=== PATIENT | male | born 1950 | race Caucasian/White ===

== ENCOUNTER → 2018-10-19 | Outpatient (CLI) | payer OTHER ==
[~2018-10-19] VITALS: Ht 182.9 cm; Wt 89.8 kg
[~2018-10-19] MED LIST: ADULT LOW DOSE81 MG PO; AMARYL PO; AMIODARONE PO; AUGMENTIN 875875 M1; AVELOX 400 MG400 MG PO; BENICAR; BENICAR 5 MG5 M1 PO; BENICAR PO; CALCIUM CARBONATE PO; COREG PO; COREG25 MG PO; COUMADIN 2 MG TA2 M1 PO; COUMADIN 4 MG TA4 M1 PO; DEMADEX100 MG PO; DIGITEK125 MCG PO; DIGOXIN OR; FISH OIL 1,001000 M2 PO; FISH OIL PO; FISHOIL PO; FOLIC ACID1 MG PO; FUROSEMIDE; FUROSEMIDE 40 M40 M1; GLUCOPHAGE PO; GLUCOPHAGE500 MG PO; IRBESARTAN150 MG PO; JANTOVEN4 MG PO; JANUVIA50 MG PO; KEFLEX250 MG PO; KLOR-CON PO; LASIX 40 MG TAB40 M1; LIPITOR PO; LIPITOR80 MG PO; MAGNESIUM PO; MUCINEX TA600 MG/TA1; NORCO 5-325 TA1 EACH PO; NORVASC5 MG PO; NOVOLOG100 UNIT/1 SUBQ; PACERONE 200 M200 MG PO; PHENERGAN-CODE120 ML; POTASSIUM-9999 MG PO; POTASSIUM20 PO; PREDNISONE 10 M10 M1; PREDNISONE 2.52.5 M1 PO; PROGRAF0.5 MG PO; PROTONIX40 M1 PO; TESSALON PERLE100 MG; TRESIBA FL100 UNIT/1 SUBQ; TRILIPIX135 MG PO; VENTOLIN HFA INH8 GM IH; VITAMIN D 5050000 I1; VITAMIN D2000 UNIT PO; XOPENEX0.63 MG/3 IH; ZETIA10 MG PO
--- NOTE | ~2018-10-19 | PATH ---
[facility] [address] [place] [address] PATHOLOGY RPT PROCEDURE Name: GWENDOLYNNIMA ELVIS Room #: REG Saskia MJesús.#: [id number] Admission: 10/19/18 Date of : 50 Discharge: Report #: [id number] Path Case #: [id number] [facility] Accession Number: [id number] . 01 Material submitted: . PART A: POLYP AT SPLENIC FLEXURE PART B: POLYP AT CECUM X2 PART C: POLYP AT SIGMOID COLON X3 . 01 Clinical history: . Pre-OP DX: Screening Post-OP DX: Colon polyps . 02 Diagnosis: A. Polyp, at splenic flexure, endoscopic biopsy: - Tubular adenoma. - Negative for high grade dysplasia. - Cauterized margin showing unremarkable mucosa. . B. Polyp x2, cecum, endoscopic biopsy: - Tubular adenoma x2. - Negative for high grade dysplasia. . C. Polyp x3, sigmoid colon, endoscopic biopsy: - Multiple fragments of tubular adenoma. - Negative for high grade dysplasia. . (IUV:mml; 10/20/18) QL/10/20/2018 . 02 Electronically signed: . Imelda Martin MD, Pathologist NPI- [id number] . 01 Gross description: . A. Received in formalin labeled "Nima Snow, polyp at splenic flexure," is a 1.0 x 0.8 x 0.6 cm polypoid piece of edwards soft tissue. The margin is inked and the specimen is sectioned perpendicular to the margin and entirely submitted in cassette A1 and A2. . B. Received in formalin labeled "Nima Snow, polyp at cecum x2," are 2 segments of edwards soft tissue measuring 1.1 x 0.3 x 0.4 cm in aggregate dimensions and ranging from 0.5 to 0.6 cm in maximum dimension. The specimen is submitted entirely in cassette B1. . C. Received in formalin labeled "Nima Snow, polyp at sigmoid colon x3," are multiple segments of edwards soft tissue measuring 1.5 x 0.6 x 0.[address] [address] PATHOLOGY RPT PROCEDURE Name: NIMA SNOW [place] Room #: REG ROS Freitas.#: [id number] Admission: 10/19/18 Date of : 50 Discharge: Report #: [id number] Path Case #: [id number] in aggregate dimensions. The specimen is filtered and entirely submitted in cassette C1. (TSD; 10/19/2018) TOB/TOB . 02 Pathologist provided ICD-10: D12.3, D12.0, D12.5 . 02 CPT . 068654, 455368, [id number] Specimen Comment: A courtesy copy of this report has been sent to Specimen Comment: [phone], . Specimen Comment: Report sent to / DR MCLAUGHLIN Specimen Comment: A duplicate report has been generated due to demographic updates. Performed at: [address], [place] [id number] MD Chriss Campuzano MD Phone: [phone] Performed at: [address] [id number] MD Imelda Martin MD Phone: [phone]
== END | disposition home or self-care (01) ==
LOC: GI 06:52
DX: Z12.11 Encounter for screening for malignant neoplasm of colon (principal); Z86.010 Personal history of colon polyps; D12.3 Benign neoplasm of transverse colon; D12.0 Benign neoplasm of cecum; D12.5 Benign neoplasm of sigmoid colon; K64.8 Other hemorrhoids; I13.0 Hypertensive heart and chronic kidney disease with heart failure and stage 1 through stage 4 chronic kidney disease, or unspecified chronic kidney disease; I50.9 Heart failure, unspecified; E11.22 Type 2 diabetes mellitus with diabetic chronic kidney disease; N18.9 Chronic kidney disease, unspecified; I25.10 Atherosclerotic heart disease of native coronary artery without angina pectoris; I42.9 Cardiomyopathy, unspecified; D64.9 Anemia, unspecified; G47.33 Obstructive sleep apnea (adult) (pediatric); E66.09 Other obesity due to excess calories; Z95.1 Presence of aortocoronary bypass graft; Z88.0 Allergy status to penicillin; Z87.19 Personal history of other diseases of the digestive system; Z85.828 Personal history of other malignant neoplasm of skin; Z90.49 Acquired absence of other specified parts of digestive tract; Z88.8 Allergy status to other drugs, medicaments and biological substances; Z95.0 Presence of cardiac pacemaker; Z94.1 Heart transplant status; Z98.890 Other specified postprocedural states; Z79.899 Other long term (current) drug therapy; Z68.26 Body mass index [BMI] 26.0-26.9, adult
CPT/HCPCS: 62110; 62900